=== PATIENT | male | born 1995 | race Two or more races ===

== ENCOUNTER 2018-06-22 16:49 | Emergency (ER) | payer BC, MEDICAID, OTHER, SELFPAY ==
[2018-06-22 17:00] VITALS: BP 126/78
[2018-06-22] MEDS ORDERED: CEFTRIAXONE 250 MG IM ONE (17:30)
[2018-06-22] MEDS ORDERED: AZITHROMYCIN 250 MG TABLET PO ONE (17:30)
[2018-06-22] MEDS ORDERED: PHENAZOPYRIDINE 200 MG TABLET PO ONE (17:30)
[2018-06-22] MEDS ORDERED: CEFTRIAXONE 250 MG ONE (17:41)
[2018-06-22] MEDS ORDERED: AZITHROMYCIN 500 MG TABLET ONE (17:41)
[2018-06-22] MEDS ORDERED: PHENAZOPYRIDINE 200 MG TABLET ONE (17:48)
[2018-06-22 18:07] LABS: MICROSCOPIC NOT IND
[2018-06-22 18:19] LABS: CULTURE INDICATED? NO
== END 2018-06-22 18:44 | disposition home or self-care (01) ==
LOC: ED 18:38
DX: N34.1 Nonspecific urethritis (principal)
CPT/HCPCS: 81003; 87491; 87591; 96372; 99283; J0696